=== PATIENT | female | born 1950 | race Caucasian/White ===

== ENCOUNTER 2017-11-18 22:06 | Inpatient (IN) | payer OTHER ==
[~2017-11-18] VITALS: Ht 160 cm; Wt 102.6 kg
[~2017-11-18 22:06] MED LIST: BENADRYL25 MG PO; COUMADIN1 MG PO; DAILY VALUE1 EACH PO; ESTRACE42.5 GM VG; HYDROCODON-ACE1 EAC7 PO; IRON325 MG PO; LASIX40 MG PO; MELOXICAM7.5 MG PO; MOBIC7.5 MG PO; MULTIPLE PO; NORVASC2.5 MG PO; OXYCODONE HCL5 MG PO; POTASSIUM CHLO10 ME3 PO; PRILOSEC20 MG PO; RANITIDINE HCL150 MG PO; SENNA-TIME S T1 EACH PO; TYLENOL REGULA325 MG PO; VITAMIN B-6100 MG PO
[2017-11-19 07:52] VITALS: BP 135/71
[2017-11-19 12:47] VITALS: BP 127/60
[2017-11-19 15:29] VITALS: BP 142/67
[2017-11-19 17:50] VITALS: BP 137/65
[2017-11-19 20:10] VITALS: BP 142/63
[2017-11-20] VITALS: BP 141/68
[2017-11-20 04:09] VITALS: BP 133/63
[2017-11-20 06:51] LABS: CHLORIDE 105 MEQ/L (99-109); CREATININE 0.8 MG/DL (0.6-1.3); GFR ESTIMATE (CALCULATED) > 59 mL/min/; GLUCOSE 114 mg/dL (70-99); POTASSIUM 3.6 MEQ/L (3.7-5.4); SODIUM 138 MEQ/L (136-147); UREA NITROGEN (BUN) 14 mg/dL (9-23)
[2017-11-20 06:52] LABS: HEMATOCRIT 36.6 % (36.0-46.0); MCV 84.5 FL (83-99)
[2017-11-20 06:53] LABS: HEMOGLOBIN 12.1 G/DL (11.9-15.5)
[2017-11-20 08:00] VITALS: BP 121/63
[2017-11-20 12:07] VITALS: BP 139/64
[2017-11-20 15:44] VITALS: BP 133/93
[2017-11-20 20:21] VITALS: BP 164/71
[2017-11-21 00:07] VITALS: BP 174/76
[2017-11-21 04:24] VITALS: BP 158/67
[2017-11-21 08:11] VITALS: BP 165/82
[2017-11-21 08:47] LABS: HEMATOCRIT 36.9 % (36.0-46.0); HEMOGLOBIN 12.4 G/DL (11.9-15.5)
[2017-11-21] MEDS ORDERED: ELIQUIS2.5 MG PO (09:00)
[2017-11-21] MEDS ORDERED: OXYCODONE HCL5 MG PO (09:00)
[2017-11-21 12:53] VITALS: BP 139/78
[2017-11-21 12:59] VITALS: BP 139/78
== END 2017-11-21 15:23 | DRG 470 ==
LOC: ENRESERV 22:06 → 2SOUTH 11-19 06:57 → 3WEST 11-19 12:33 → 2SOUTH 11-19 14:33 → 3WEST 11-21 15:23
PROVIDERS: Orthopaedic Surgery
PROC: 0SRC0J9 Replacement of Right Knee Joint with Synthetic Substitute, Cemented, Open Approach (ICD-10-PCS; principal; 2017-11-19)
DX: M17.11 Unilateral primary osteoarthritis, right knee (principal); K21.9 Gastro-esophageal reflux disease without esophagitis; M85.861 Other specified disorders of bone density and structure, right lower leg; Z68.38 Body mass index [BMI] 38.0-38.9, adult; Z96.652 Presence of left artificial knee joint; Z90.710 Acquired absence of both cervix and uterus; Z82.49 Family history of ischemic heart disease and other diseases of the circulatory system
CPT/HCPCS: 80048; 85014; 85018; C1713; J0131; J0690; J1100; J1885; J2250; J2405; J2795; J7050; J7120; L1820